=== PATIENT | male | born 1995 | race Caucasian/White ===

== ENCOUNTER 2020-01-05 10:14 | Day surgery (SDC) | payer SELFPAY ==
[2020-01-05] VITALS (10 sets, daily range): BP systolic 127–163; BP diastolic 72–86; PULSE 57–112; RESP 16–20; TEMP 36.8–37.6; O2SAT 97–100; BMI 19.3
--- NOTE | 2020-01-05 12:14 | ECG_ITS ---
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 Measurements Intervals [place] Rate: 62 P: 49 KS: 122 QRS: 86 QRSD: 90 T: 80 QT: 435 QTc: 442 Interpretive Statements SINUS RHYTHM No previous ECG available for comparison Electronically Signed On 01-06-2020 20:24:55 CDT by Vitaly Marinelli M.D. [id number]
[2020-01-05] MEDS: ondansetron 2 mg/ML SDV 2 mL 4 MG IVP (12:49)
[2020-01-05] MEDS: sodium chloride 0.9% 1,000 ML 999 ML IV (12:49)
[2020-01-05 13:12] LABS: Basophils % 0.2 %; Eosinophils % 0.1 %; Hematocrit 55.2 % (42.0-52.0); Hemoglobin 18.2 g/dL (11.7-16.6); Lymphocytes # 1.1 10^3/uL (0.8-4.8); Lymphocytes % 5.9 %; Mean Corpuscular Hemoglobin 30.7 pg (28.0-34.0); Mean Corpuscular Volume 93.1 fL (80-94); Mean Platelet Volume 12.3 fL (7.4-10.4); Monocytes % 5.3 %; Neutrophils # 16.16 10^3/uL (1.8-7.7); Neutrophils % 88.1 %; Nucleated Red Blood Cells % 0 %; Platelet Count 165 10^3/cmm (130-400); Red Blood Count 5.93 10^6/uL (4.1-5.3); Red Cell Distribution Width 13.2 % (12.1-15.1); White Blood Count 18.3 10^3/uL (4.0-10.0)
--- NOTE | 2020-01-05 13:16 | CT_ITS ---
WS: [id number] CT ABDOMEN AND PELVIS WITH CONTRAST HISTORY: abdominal pain, fever TECHNIQUE: Imaging performed of the abdomen and pelvis with IV contrast. Single phase imaging of the abdomen. Coronal and sagittal reformats are submitted. All CT scans at [facility] use at least one of these dose optimization techniques: automated exposure control; mA and/or kV adjustment per patient size (includes targeted exams where dose is matched to clinical indication); or iterativ e reconstruction. IV CONTRAST: Omnipaque 300; 95 mL IV. Oral contrast: No DLP: 225.15 mGy.cm COMPARISON: None available. Lower thorax: Benign granuloma RIGHT lower lung. Heart is normal size. No hiatal hernia. Liver/biliary system: Normal size with no intrahepatic dilatation. Gallbladder: Abnormal gallbladder. There is diffuse circumferential gallbladder wall thickening and f luid. Hyperemia of the gallbladder wall. No stone identified. No common bile duct dilatation. Pancreas: Normal. Spleen: Normal. Adrenal glands: Normal. Right kidney: Bilateral nephrolithiasis. No obstruction. Left kidney: Bilateral nephrolithiasis. No obstruction. Aorta: Normal. Lymphadenopathy: None. Free fluid: None. GI tract: The appendix is poorly visualized. There is no evidence for acute appendicitis. Abdominal wall: Unremarkable abdominal wall. No hernia. Pelvis: Normal. Bones: L5 anterolisthesis by 5 mm. Bilateral pars defects. Partial fusion across the T11-[address]/CT abdomen pelvis w con* [id number] IMPRESSION: 1. Acute cholecystitis. 2. No bile duct dilatation. 3. Appendix not visualized but there are no secondary findings of appendicitis . 4. Grade 1 spondylolisthesis and spondylolysis.
--- NOTE | 2020-01-05 13:16 | W.ED.ABDPA2 ---
HPI - Abdominal Pain General: Chief Complaint: Abdominal Pain Stated Complaint: Stomach Pains Time Seen by Provider: 01/05/20 12:13 History of Present Illness: HPI narrative: This patient is a 24-year-old male who presents today with abdominal pain. It mostly in the upper part of his abdomen. Is been going on for 3 days but for the first 2 days it only occurred at night. He said it would start shortly after he lay down and go away just before he got up in the morning. It is been very uncomfortable and keeping him awake. Today it has not gone away. He has had some vomiting but sounds like he is making himself throw up hoping it would make his stomach feel better. He has not had any diarrhea or constipation. No urinary symptoms. The pain radiates into his back. There is no migration of the pain. He has not had fevers but did feel like he had some chills last night. He has been able to eat during the day. Eating does not make the pain worse. He admits to drinking a lot of alcohol but really has not had much in the past 2 weeks. He had a few beers last Friday. MD elicited complaint: abdominal pain Pertinent past history: none Onset (ago): day(s) (3) Pain Consistency: intermittent Location: Epigastric, LUQ and RUQ Severity: severe Quality: aching and fullness Radiation: back Exacerbating factors: nothing Relieving factors: nothing Associated Symptoms: Reports chills, nausea and vomiting Review of Systems General: Reports: 10 or more systems reviewed and unremarkable except in HPI and below Const: Reports: chills Eyes: Denies: change in vision ENMT: Denies: odynophagia Card: Denies: chest pain or swelling of feet/ankles Resp: Denies: dyspnea, productive cough or non-productive cough GI: Reports: nausea and vomiting : Denies: flank pain Musc: Reports: back pain; Denies: neck pain Skin/Breast: Denies: rash Neuro: Denies: headache(s), numbness in extremities or weakness in extremities Geoff/Lymph: Denies: easy bruising or easy bleeding PFSH ED PFSH: Medical History (Updated 01/05/20 @ 15:03 by Khadar Mcduffie MD) No significant past medical history Surgical History (Updated 01/05/20 @ 15:00 by Khadar Mcduffie MD) Femur fracture, right History of elbow surgery Right History of tonsillectomy Social History (Updated 01/05/20 @ 15:01 by Khadar Mcduffie MD) Smoking and tobacco status: current every day smoker cigarettes Packs smoked per day: 1 [ Other cigarette details: Started smoking around 2011 ] Alcohol intake: current Alcohol type: hard liquor Physical Exam Const: COMMON NORMALS: patient oriented x3, no limitations and alert GENERAL APPEARANCE: cooperative HENMT: HEAD & SCALP: normal to inspection FACE & SINUS: normal facial exam Eye: GENERAL EYE: appearance normal, both eyes and all related structures Neck/C-Spine: COMMON NORMALS: supple, no meningeal signs and no JVD Chest: COMMONS NORMALS: normal inspection of the chest Resp: COMMON NORMALS: normal respiratory effort, No use of accessory muscles and clear to auscultation bilaterally AUSCULTATION: clear to auscultation bilaterally Cardio: COMMON NORMALS: no JVD, regular rate, regular rhythm and No murmurs present (Cardio) RATE: regular rate RHYTHM: regular rhythm GI: INSPECTION: Yes normal to inspection PALPATION: Yes Firmness to palpation present (GI), Yes Tenderness to palpation present (GI) (Worst in the bilateral upper quadrants but tender all over) and Yes Guarding due to palpation present (GI) Back/Pelvis: COMMON NORMALS: thoracic and lumbar spine normal to inspection Extremity: COMMON NORMALS: normal to inspection Neuro: COMMON NORMALS: patient oriented x3, moves all extremities, no focal motor deficits and no sensory deficits noted SENSORIUM/ORIENTATION: Yes alert MENINGEAL SIGNS: Yes no meningeal signs Psych: COMMON NORMALS: mental status grossly normal, cooperative and normal affect Skin: COMMON NORMALS: no rashes or lesions noted and turgor normal GENERAL SKIN EXAM: no rashes or lesions noted and turgor normal Course ED course: Patient with 3 days of abdominal pain. Has had some vomiting. He is definitely tender in the epigastrium and right upper quadrant. CT shows acute cholecystitis with an elevated white count. Dr. Mcduffie will see him and probably taken to the OR. I gave him a dose of cefoxitin in the ER. Vital Signs: Vital signs: Vital Signs Temperature 99.6 F 01/05/20 17:37 Pulse Rate 92 01/05/20 17:37 Respiratory Rate 18 01/05/20 17:37 Blood Pressure 127/84 01/05/20 17:37 Pulse Oximetry 98 01/05/20 17:37 MDM - Abdominal Pain Lab Data: Labs: Lab Results 01/05/20 01/05/20 01/05/20 Range/Units 13:05 13:05 13:05 WBC 18.3 H (4.0-10.0) 10^3/ uL RBC 5.93 H (4.1-5.3) 10^6/u L Hgb 18.2 H (11.7-16.6) g/dL Hct 55.2 H (42.0-52.0) % MCV 93.1 (80-94) fL MCH 30.7 (28.0-34.0) pg MCHC 33.0 (30.0-36.0) g/dL RDW 13.2 (12.1-15.1) % Plt Count 165 (130-400) 10^3/c mm MPV 12.3 H (7.4-10.4) fL Neut % (Auto) 88.1 % Lymph % (Auto) 5.9 % [place] % (Auto) 5.3 % Eos % (Auto) 0.1 % Baso % (Auto) 0.2 % Neut # (Auto) 16.16 H (1.8-7.7) 10^3/u L Lymph # (Auto) 1.1 (0.8-4.8) 10^3/u L [place] # (Auto) 1.0 H (0.2-0.9) 10^3/u L Eos # (Auto) 0.0 (0.0-0.8) 10^3/u L Baso # (Auto) 0.0 (0.0-0.1) 10^3/u L Nucleated RBC % (a uto) 0 % Nucleated RBCs # 0.0 /100WBC Sodium 136 (136-145) mmol/L Potassium 4.2 (3.5-5.1) mmol/L Chloride 98 (98-107) mmol/L Carbon Dioxide 24 (22-29) mmol/L Anion Gap 18.2 (5-19) BUN 8 (6-20) mg/dL Creatinine 0.8 (0.7-1.2) mg/dL GFR Calculation 117.8 (90-130) mL/min Glucose 116 H (65-115) mg/dL Calculated Osmolal ity 281 L (285-295) mOsm/k g Lactic Acid 1.1 (0.5-2.2) mmol/L Calcium 10.1 (8.5-10.5) mg/dL Magnesium 2.1 (1.7-2.3) mg/dL Total Bilirubin 0.4 (0.15-1.2) mg/dL AST 16 (0-40) U/L ALT 10 (0-41) U/L Alkaline Phosphata se 134 H (40-130) IU/L Total Protein 8.0 (6.6-8.7) g/dL Albumin 4.7 (3.5-5.2) g/dL Globulin 3.3 (1.3-4.6) g/dL Lipase 21 (13-60) U/L Urine Color (Yellow) Urine Appearance (CLEAR) Urine pH (5-7) Ur Specific Gravit y (1.005-1.030) Urine Protein (Negative) Urine Glucose (UA) (Normal) Urine Ketones (Negative) Urine Blood (Negative) Urine Nitrate (Negative) Urine Bilirubin (Negative) Urine Urobilinogen (Negative) mg/dL Ur Leukocyte Jada ase (Negative) Ethyl Alcohol < 10 (0-10) mg/dL 01/05/20 Range/Units 14:00 WBC (4.0-10.0) 10^3/ uL RBC (4.1-5.3) 10^6/u L Hgb (11.7-16.6) g/dL Hct (42.0-52.0) % MCV (80-94) fL MCH (28.0-34.0) pg MCHC (30.0-36.0) g/dL RDW (12.1-15.1) % Plt Count (130-400) 10^3/c mm MPV (7.4-10.4) fL Neut % (Auto) % Lymph % (Auto) % [place] % (Auto) % Eos % (Auto) % Baso % (Auto) % Neut # (Auto) (1.8-7.7) 10^3/u L Lymph # (Auto) (0.8-4.8) 10^3/u L [place] # (Auto) (0.2-0.9) 10^3/u L Eos # (Auto) (0.0-0.8) 10^3/u L Baso # (Auto) (0.0-0.1) 10^3/u L Nucleated RBC % (a uto) % Nucleated RBCs # /100WBC Sodium (136-145) mmol/L Potassium (3.5-5.1) mmol/L Chloride (98-107) mmol/L Carbon Dioxide (22-29) mmol/L Anion Gap (5-19) BUN (6-20) mg/dL Creatinine (0.7-1.2) mg/dL GFR Calculation (90-130) mL/min Glucose (65-115) mg/dL Calculated Osmolal ity (285-295) mOsm/k g Lactic Acid (0.5-2.2) mmol/L Calcium (8.5-10.5) mg/dL Magnesium (1.7-2.3) mg/dL Total Bilirubin (0.15-1.2) mg/dL AST (0-40) U/L ALT (0-41) U/L Alkaline Phosphata se (40-130) IU/L Total Protein (6.6-8.7) g/dL Albumin (3.5-5.2) g/dL Globulin (1.3-4.6) g/dL Lipase (13-60) U/L Urine Color Yellow (Yellow) Urine Appearance Hazy A (CLEAR) Urine pH 7 (5-7) Ur Specific Gravit y 1.020 (1.005-1.030) Urine Protein Neg (Negative) Urine Glucose (UA) Norm (Normal) Urine Ketones 2+ H (Negative) Urine Blood Neg (Negative) Urine Nitrate Negative (Negative) Urine Bilirubin Neg (Negative) Urine Urobilinogen 1 H (Negative) mg/dL Ur Leukocyte Jada ase Negative (Negative) Ethyl Alcohol (0-10) mg/dL Discharge Plan Discharge Condition: Stable Discharge Orders: Discharge Order (Routine); Ordered 01/05/20 Ordered By: Khadar Mcduffie Discharge Diet: Advance as tolerated Discharge Activity: Limit activity as instructed Discharge Date/Time: 01/05/20 15:15 Coding Level of Care Code ED Superintendent Generating Plant for Chg Fwd Exam Comprehensive
[2020-01-05 13:31] LABS: Lactic Sepsis W/Reflex 1.1 mmol/L (0.5-2.2)
[2020-01-05 13:48] LABS: Alanine Aminotransferase 10 U/L (0-41); Albumin Level 4.7 g/dL (3.5-5.2); Alkaline Phosphatase 134 IU/L (40-130); Anion Gap 18.2 (5-19); Aspartate Amino Transferase 16 U/L (0-40); Blood Urea Nitrogen 8 mg/dL (6-20); Calcium 10.1 mg/dL (8.5-10.5); Carbon Dioxide 24 mmol/L (22-29); Chloride 98 mmol/L (98-107); Globulin 3.3 g/dL (1.3-4.6); Glomerular Filtration Rate 117.8 mL/min (90-130); Glucose 116 mg/dL (65-115); Lipase 21 U/L (13-60); Magnesium 2.1 mg/dL (1.7-2.3); Osmolality Calculated 281 mOsm/kg (285-295); Potassium 4.2 mmol/L (3.5-5.1); Sodium 136 mmol/L (136-145); Total Bilirubin 0.4 mg/dL (0.15-1.2)
[2020-01-05 13:51] LABS: Alcohol Level < 10 mg/dL (0-10)
[2020-01-05 14:12] LABS: Add Urine Microscopic? NO
[2020-01-05 14:22] LABS: Bilirubin Urine Neg (Negative); Blood Urine Neg (Negative); Glucose Urine UA Norm (Normal); Ketones Urine 2+ (Negative); Leukocyte Esterase Urine Negative (Negative); Nitrate Urine Negative (Negative); Protein Urine Neg (Negative); Urine Appearance Hazy (CLEAR); Urine Color Yellow (Yellow); Urobilinogen Urine 1 mg/dL (Negative); pH Urine 7 (5-7)
--- NOTE | 2020-01-05 14:58 | P.HP_ITS ---
Providers/Chief Complaint Admitting Physician: General Surgery Khadar Mcduffie MD Chief Complaint: Stomach Pains History of Present Illness Aurelio Becerra is a 24 year old male who says that he started developing right upper quadrant pain 2 to 3 days ago. The pain wraps around his side and goes to his back. He has had some chills. He felt as if initially it might may make him feel better to vomit and so he forced himself to vomit once. He says it made him feel a little bit better but then the pain returned. He tried the same maneuver but it did not help him the second time. He has not had any changes in bowel habits. He denies hematemesis or hematochezia or melena. He came to the emergency room and a CAT scan of the abdomen and pelvis revealed changes of acute cholecystitis. The patient says that he had a similar symptomatic episode, although not nearly as bad, about a month ago. He has had one other episode in the interim before this severe attack. He cannot tell me that he has any obvious food intolerances and in short, he does not have an obvious ongoing history of biliary colic otherwise. Review of Systems General: Reports: 10 or more systems reviewed and unremarkable except in HPI and below Const: Reports: chills GI: Reports: abdominal pain, nausea and vomiting; Denies: change in bowel habits Medications/Allergies Allergies Allergy/AdvReac Type Severity Reaction Status Date / Time amoxicillin [From Augmentin] Allergy Rash Verified 01/05/20 15:08 azithromycin [From Zithromax] Allergy Unknown Verified 01/05/20 15:08 clavulanic acid Allergy Unknown Verified 01/05/20 15:08 [From Augmentin] codeine Allergy Unknown Verified 01/05/20 15:10 morphine Allergy Unknown Verified 01/05/20 15:10 Penicillins Allergy Rash Verified 01/05/20 15:07 walnut Allergy Unknown Verified 01/05/20 15:09 PFSH Acute PFSH: Medical History (Updated 01/05/20 @ 15:03 by Khadar Mcduffie MD) No significant past medical history Surgical History (Updated 01/05/20 @ 15:00 by Khadar Mcduffie MD) Femur fracture, right History of elbow surgery Right History of tonsillectomy Social History (Updated 01/05/20 @ 15:01 by Khadar Mcduffie MD) Smoking and tobacco status: current every day smoker cigarettes Packs smoked per day: 1 [ Other cigarette details: Started smoking around 2011 ] Alcohol intake: current Alcohol type: hard liquor Vitals/I&O/Wt Last Vital Signs Temp 98.3 F 01/05/20 10:23 Pulse 67 01/05/20 14:17 Resp 18 01/05/20 14:17 BP 153/85 01/05/20 14:17 Pulse Ox 97 01/05/20 14:17 Weight last 48 hrs Weight 135 lb Physical Exam Narrative: EXAM NARRATIVE: The patient was encountered in his room in the emergency department. He does not appear to be in any acute distress. The pup ils are equal. No neck masses are palpated. The lungs are clear anteriorly. The heart is regular. The abdomen reveals bowel sounds but they may be somewhat hypoactive. He has significant tenderness in the right upper quadrant with a positive Tate's sign and almost some visual distention there as he is quite thin. No other obvious masses are palpated. The extremities reveal no edema. Neurologically the patient appears to be grossly intact. Data : 01/05/20 13:05 01/05/20 13:05 Other Labs: Laboratory Tests 01/05/20 13:05 Total Bilirubin 0.4 AST 16 ALT 10 Alkaline Phosphatase [address] Abd/Pel: Radiologist's impression: CT abdomen/pelvis 01/05/2020 IMPRESSION: 1. Acute cholecystitis. 2. No bile duct dilatation. 3. Appendix not visualized but there are no secondary findings of appendicitis. 4. Grade 1 spondylolisthesis and spondylolysis. A&P Assessment and plan (1) Acute cholecystitis: CT reviewed. I agree with the assessment of acute cholecystitis. I discussed cholecystitis with the patient in some detail. Surgical details including risks of bleeding, infection, internal organ injury, chances of an open procedure, etc. were all gone over. The patient seems to understand and would like to proceed with a cholecystectomy today. He has already voiced a desire to try to go home today if at all possible. Status: Acute Attestations Medical Necessity Statement*: The patient would like to try to go home today. I told him barring any obvious contraindications or surgical complications, I will try to make that happen. He will be kept in outpatient status for now. Coding Level of Care Code Acute Canvassing Manager for [facility] Fwd Diagnoses Acute cholecystitis K81.0
--- NOTE | 2020-01-05 15:34 | ANES.PREANE2 ---
Pre-Anesthetic Assessment Pre-Anesthetic Assessment: Height/Weight: Height 1.78 m Weight 61.235 kg Temp Pulse Resp BP Pulse Ox 98.3 F 60 16 153/85 98 01/05/20 10:23 01/05/20 15:15 01/05/20 15:15 01/05/20 15:15 01/05/20 15:15 Preop Diagnosis: cholecytisits Proposed Procedure: Operation Date: 01/05/20 16:00 Proposed Procedures p Laparoscopic Cholecystectomy(Not Applicable) - Khadar Mcduffie MD Familial anesthetic complications: None Was Beta Serafin taken within 24 hours: N/A Last intake: NPO > 8 hrs, water at 0500 Social: Social History: Tobacco Comment: alchol on weekends Exam: Pre-Anes Outpt Exam: alert, oriented x 3, clear to auscultation bilaterally and regular rate & rhythm Airway: Cervical ROM: WNL MP: 2 Additional comments: poor dentition, brown rotting teeth, broken Pulmonary: Pulmonary: Asthma (used to take singulair as a child) GI: Comments: vomited once last night, no further vomiting Anesthetic Plan: ASA status: 1E Anesthesia: General Risk of > 500 ml blood loss (7ml/kg in children): No PFSH Anesthesia PFSH: Medical History (Updated 01/05/20 @ 15:03 by Khadar Mcduffie MD) No significant past medical history Surgical History (Updated 01/05/20 @ 15:00 by Khadar Mcduffie MD) Femur fracture, right History of elbow surgery Right History of tonsillectomy Social History (Updated 01/05/20 @ 15:01 by Khadar Mcduffie MD) Smoking and tobacco status: current every day smoker cigarettes Packs smoked per day: 1 [ Other cigarette details: Started smoking around 2011 ] Alcohol intake: current Alcohol type: hard liquor Data Anesthesia CBC & Chem 7: 01/05/20 13:05 01/05/20 13:05 Other Labs: Laboratory Results - last 48 hr 01/05/20 01/05/20 01/05/20 13:05 13:05 13:05 WBC 18.3 H RBC 5.93 H Hgb 18.2 H Hct 55.2 H MCV 93.1 MCH 30.7 MCHC 33.0 RDW 13.2 Plt Count 165 MPV 12.3 H Neut % (Auto) 88.1 Lymph % (Auto) 5.9 [place] % (Auto) 5.3 Eos % (Auto) 0.1 Baso % (Auto) 0.2 Neut # (Auto) 16.16 H Lymph # (Auto) 1.1 [place] # (Auto) 1.0 H Eos # (Auto) 0.0 Baso # (Auto) 0.0 Nucleated RBC % (auto) 0 Nucleated RBCs # 0.0 Sodium 136 Potassium 4.2 Chloride 98 Carbon Dioxide 24 Anion Gap 18.2 BUN 8 Creatinine 0.8 GFR Calculation 117.8 Glucose 116 H Calculated Osmolality 281 L Lactic Acid 1.1 Calcium 10.1 Magnesium 2.1 Total Bilirubin 0.4 AST 16 ALT 10 Alkaline Phosphatase 134 H Total Protein 8.0 Albumin 4.7 Globulin 3.3 Lipase 21 Urine Color Urine Appearance Urine pH Ur Specific [place] Urine Protein Urine Glucose (UA) Urine Ketones Urine Blood Urine Nitrate Urine Bilirubin Urine Urobilinogen Ur Leukocyte Esterase Ethyl Alcohol < 10 01/05/20 14:00 WBC RBC Hgb Hct MCV MCH MCHC RDW Plt Count MPV Neut % (Auto) Lymph % (Auto) [place] % (Auto) Eos % (Auto) Baso % (Auto) Neut # (Auto) Lymph # (Auto) [place] # (Auto) Eos # (Auto) Baso # (Auto) Nucleated RBC % (auto) Nucleated RBCs # Sodium Potassium Chloride Carbon Dioxide Anion Gap BUN Creatinine GFR Calculation Glucose Calculated Osmolality Lactic Acid Calcium Magnesium Total Bilirubin AST ALT Alkaline Phosphatase Total Protein Albumin Globulin Lipase Urine Color Yellow Urine Appearance Hazy A Urine pH 7 Ur Specific [place] 1.020 Urine Protein Neg Urine Glucose (UA) Norm Urine Ketones 2+ H Urine Blood Neg Urine Nitrate Negative Urine Bilirubin Neg Urine Urobilinogen 1 H Ur Leukocyte Esterase Negative Ethyl Alcohol Cardiac Studies: No Data to Display
[2020-01-05] MEDS: metroNIDAZOLE IV 500 MG/100 ML PREMIX 100 MG IV (16:00)
--- NOTE | 2020-01-05 16:47 | PM.OP ---
Operative Report Date of procedure: January 05, 2020 Pre-op Diagnosis: Acute cholecystitis. Post-op Diagnosis: Acute calculus cholecystitis on top of chronic cholecystitis. Procedure Done: Laparoscopic cholecystectomy. Specimens removed/disposition: Gallbladder. Surgeon: Khadar Mcduffie Anesthesia: General Estimated blood loss (mL): 10 Complications: None. Condition: stable Disposition: PACU Procedure: The patient was brought to the Operating Room and was placed in a supine position on the Operating Room table. General endotracheal anesthesia was induced. The abdomen was prepped and draped in a sterile fashion. A small vertical incision was carried out in the inferior aspect of the umbilicus. Blunt dissection was carried out down to the fascia, where the patient was found to have a small umbilical hernia. The hernia defect was simply elongated inferiorly. A stay suture of 0 Vicryl was placed on either side of the midline. The underlying peritoneum was opened bluntly and the Lucina port was placed directly into the peritoneal cavity and was held in place with the inflatable balloon. The peritoneal cavity was insufflated with carbon dioxide. The laparoscope was used to inspect the abdominal cavity. The gallbladder was found to be distended and had some changes of acute inflammation with edema. No other gross abnormalities were initially noted. A 5 millimeter port was placed in the epigastrium under direct vision. Two 5-millimeter ports were placed on the right side of the abdomen under direct vision. The gallbladder was palpated with a grasper and was found to be very distended. A laparoscopic needle was used to remove approximately 15 mL of very dark-colored bile which was sent for culture. This actually decompressed the gallbladder enough that a grasper could hold onto its thickened edematous wall. Blunt dissection and hydrodissection were carried out in the infundibular region of the gallbladder and the cystic duct and cystic artery were identified. The gallbladder was partially removed from the liver bed using cautery and the spatula to confirm the anatomy before the structures were clipped and divided. The gallbladder was then removed from the liver bed using cautery and the spatula. The plane between the gallbladder was very edematous but also revealed extensive chronic fibrous changes consistent with previous inflammatory change. After the gallbladder had been removed from the liver bed, the laparoscope was moved to the epigastric port and the gallbladder was removed from the peritoneal cavity through the umbilical port site after being placed in a laparoscopic bag. The stay sutures of Vicryl were tied to each other at the umbilicus. An additional [id number] suture was placed, closing the defect so that it was airtight. The perihepatic spaces were irrigated with saline and the liver bed was reinspected. No ongoing problems were seen. The remaining ports were removed from the abdominal wall and the pneumoperitoneum was evacuated. All skin incisions were closed using inverted interrupted sutures of 4-0 Vicryl. Benzoin and Steri-Strips were placed over the incisions and Band-Aids followed. The patient was taken to the Recovery Area in stable condition postoperatively.
--- NOTE | 2020-01-05 17:00 | PM.PACU ---
PACU note PACU note: alert good resp effort VSS Post-Anesthesia Exam: awake and vital signs stable Disposition: discharged
== END 2020-01-05 17:42 | disposition home or self-care (01) ==
LOC: ER 12:13 → OPS 14:58
PROVIDERS: Emergency Medicine; Visit Provider Surgery
PROC: 0FT44ZZ Resection of Gallbladder, Percutaneous Endoscopic Approach (ICD-10-PCS; CPT 47562; principal; 2020-01-05 16:00)
DX: K80.10 Calculus of gallbladder with chronic cholecystitis without obstruction (principal); F17.210 Nicotine dependence, cigarettes, uncomplicated
CPT/HCPCS: 47562; 12345; 36415; 74177; 80053; 80307; 81003; 83605; 83690; 83735; 85025; 87070; 87075; 87205; 88304; 93005; 96375; 99283; J0690; J1100; J1885; J2405; J2704; J2710; J3010; J3490; J7030; S0030